=== PATIENT | female | born 1940 | race Caucasian/White ===

== ENCOUNTER 2018-02-14 01:32 | Emergency (ER) | payer MEDICARE, BC ==
[~2018-02-14] VITALS: Ht 165.1 cm; Wt 56.2 kg
[2018-02-14 01:40] VITALS: BP 136/88
[2018-02-14] MEDS ORDERED: TRAMADOL HCL 50 MG TABLET PO ONE (02:00)
[2018-02-14] MEDS ORDERED: TRAMADOL HCL 50 MG TABLET ONE (02:02)
== END 2018-02-14 03:01 | disposition home or self-care (01) ==
LOC: ER 01:34
DX: S82.61XA Displaced fracture of lateral malleolus of right fibula, initial encounter for closed fracture (principal); S60.511A Abrasion of right hand, initial encounter; S60.512A Abrasion of left hand, initial encounter; E03.9 Hypothyroidism, unspecified; E78.00 Pure hypercholesterolemia, unspecified; I10 Essential (primary) hypertension; Z88.2 Allergy status to sulfonamides; Z90.710 Acquired absence of both cervix and uterus; Z91.040 Latex allergy status; W01.0XXA Fall on same level from slipping, tripping and stumbling without subsequent striking against object, initial encounter; Y93.89 Activity, other specified; Y92.89 Other specified places as the place of occurrence of the external cause; Y99.8 Other external cause status
CPT/HCPCS: 73610-TC; A4606; Z7610

== ENCOUNTER 2018-02-22 10:38 | Emergency (ER) | payer MEDICARE, BC ==
[~2018-02-22] VITALS: Ht 165.1 cm; Wt 56.2 kg
[2018-02-22 10:41] VITALS: BP 131/84
== END 2018-02-22 11:39 | disposition home or self-care (01) ==
LOC: ER 10:41
DX: S82.61XA Displaced fracture of lateral malleolus of right fibula, initial encounter for closed fracture (principal); E03.9 Hypothyroidism, unspecified; E78.00 Pure hypercholesterolemia, unspecified; I10 Essential (primary) hypertension; Z88.2 Allergy status to sulfonamides; Z91.040 Latex allergy status; X58.XXXA Exposure to other specified factors, initial encounter; Y93.84 Activity, sleeping; Y92.89 Other specified places as the place of occurrence of the external cause; Y99.8 Other external cause status
CPT/HCPCS: 73610-TC; A4606; Z7610

== ENCOUNTER 2021-08-10 23:01 | Emergency (ER) | payer MEDICARE, BC ==
[~2021-08-10] VITALS: Ht 165.1 cm; Wt 57.6 kg
[2021-08-10] MEDS ORDERED: AMOX-430 PO (23:45)
[2021-08-11] MEDS ORDERED: AMOX/CLAVULANATE 875 MG TABLET PO ONE
[2021-08-11] MEDS ORDERED: AMOX/CLAVULANATE 875 MG TABLET ONE (00:09)
--- NOTE | 2021-08-11 00:27 | NUR ---
Patient discharged to home in stable condition. Written and verbal after care instructions given. Patient verbalizes understanding of instruction.
[2021-08-11 02:08] VITALS: BP 148/82
== END 2021-08-11 00:28 | disposition home or self-care (01) ==
LOC: ER 23:04
DX: S61.411A Laceration without foreign body of right hand, initial encounter (principal); I10 Essential (primary) hypertension; E03.9 Hypothyroidism, unspecified; E78.00 Pure hypercholesterolemia, unspecified; Z91.040 Latex allergy status; W54.0XXA Bitten by dog, initial encounter; Y93.89 Activity, other specified; Y92.89 Other specified places as the place of occurrence of the external cause; Y99.8 Other external cause status
CPT/HCPCS: 73130; 99283; A6403

== ENCOUNTER 2022-06-19 23:55 | Emergency (ER) | payer MEDICARE, BC ==
[~2022-06-19] VITALS: Ht 167.6 cm; Wt 57.2 kg
[~2022-06-19 23:55] MED LIST: AMOX-430 PO
--- NOTE | 2022-06-20 01:10 | NUR ---
TO ER BED 14. BIBS FOR MULTIPLE DOG BITES ON L HAND. TDAP NOT UPDATED. PT IS ALERT AND ORIENTED. RR EVEN AND NONLABORED. CONNECTED TO MONITOR. WOUND IS OPEN TO AIR, KEPT CLEAN. AWAITING MD KENNY
[2022-06-20] MEDS ORDERED: AMOX/CLAVULANATE 875 MG TABLET ONE (01:44)
[2022-06-20] MEDS ORDERED: KETOROLAC TROMETHAMINE INJ 30 MG/ML VIAL ONE (01:44)
[2022-06-20] MEDS ORDERED: TDAP [DIPH/PERTUSSIS/TET] 0.5 ML VIAL IM ONE ×2 (01:45→02:00)
[2022-06-20] MEDS ORDERED: AMOX/CLAVULANATE 875 MG TABLET PO ONE (02:00)
[2022-06-20] MEDS ORDERED: KETOROLAC TROMETHAMINE INJ 30 MG/ML VIAL IM ONE (02:00)
[2022-06-20] MEDS ORDERED: LIDOCAINE 1%-EPI 1:100,000 20 ML VIAL ONE (02:19)
[2022-06-20] MEDS ORDERED: FLUC150T PO (04:00)
[2022-06-20] MEDS ORDERED: AMOX-430 PO (04:00)
--- NOTE | 2022-06-20 04:11 | NUR ---
Patient discharged to home in stable condition. Written and verbal after care instructions given. Patient verbalizes understanding of instruction.
[2022-06-20 04:12] VITALS: BP 139/78
== END 2022-06-20 04:13 | disposition home or self-care (01) ==
LOC: ER 23:56
DX: S61.412A Laceration without foreign body of left hand, initial encounter (principal); S61.012A Laceration without foreign body of left thumb without damage to nail, initial encounter; I10 Essential (primary) hypertension; E78.5 Hyperlipidemia, unspecified; E03.9 Hypothyroidism, unspecified; E78.00 Pure hypercholesterolemia, unspecified; Z88.2 Allergy status to sulfonamides; Z88.8 Allergy status to other drugs, medicaments and biological substances; Z79.899 Other long term (current) drug therapy; W54.0XXA Bitten by dog, initial encounter; Y93.89 Activity, other specified; Y92.89 Other specified places as the place of occurrence of the external cause; Y99.8 Other external cause status
CPT/HCPCS: 99284; 12002; 90471; 90715; 73130; 96372; J1885; A6403; J3490